=== PATIENT | female | born 1975 | race Caucasian/White ===

== ENCOUNTER 2022-02-04 05:39 | Emergency (ER) | payer SELFPAY ==
[~2022-02-04] VITALS: Ht 172.7 cm; Wt 72.6 kg
--- NOTE | 2022-02-04 05:45 | NUR ---
ULICES FROM HOME C/O ETOH FELL IN BATHROOM, CUT TO TOP OF HEAD. PT IS ALERT. RR EVEN AND NON LABORED. WOUND IS OPEN TO AIR, ACTIVELY BLEEDING. UNK TDAP. CONNECTED TO MONITOR. SAFETY PRECAUTIONS IN PLACE. AWAITING MD DOLAN
--- NOTE | 2022-02-04 06:26 | NUR ---
MEDICAL DOSIMETRIST AT BEDSIDE FOR WOUND CLEANING
--- NOTE | 2022-02-04 06:40 | NUR ---
PT SIGNED WEIVER
--- NOTE | 2022-02-04 06:49 | NUR ---
PT TAKEN TO CT SCAN VIA ELLIOT
[2022-02-04] MEDS ORDERED: BACI/NEOM/POLY B OINT PKT 1 UDPKT PACKET ONE (06:53)
[2022-02-04] MEDS ORDERED: LIDOCAINE 1% INJ 50 ML MDV IJ ONE ×2 (06:53→07:00)
[2022-02-04] MEDS ORDERED: TDAP [DIPH/PERTUSSIS/TET] 0.5 ML VIAL IM ONE ×2 (06:53→07:00)
[2022-02-04] MEDS ORDERED: ACETAMINOPHEN 325 MG TABLET PO ONE (07:00)
[2022-02-04] MEDS ORDERED: BACI/NEOM/POLY B OINT PKT 1 UDPKT PACKET TP ONE (07:00)
[2022-02-04] MEDS ORDERED: ONDANSETRON 4 MG TAB.RAPDIS ONE (07:09)
[2022-02-04] MEDS ORDERED: ACETAMINOPHEN 325 MG TABLET ONE (07:09)
[2022-02-04] MEDS ORDERED: ONDANSETRON 4 MG TAB.RAPDIS SL ONE (07:30)
--- NOTE | 2022-02-04 07:30 | NUR ---
PT TAKEN TO CT
[2022-02-04] MEDS ORDERED: IBUP-1955 PO (07:35)
[2022-02-04] MEDS ORDERED: ONDA4TAB5 PO (07:35)
--- NOTE | 2022-02-04 07:47 | NUR ---
ARRIVED BACK FROM CT
[2022-02-04 08:56] VITALS: BP 108/67
== END 2022-02-04 08:57 | disposition home or self-care (01) ==
LOC: ER 05:47
DX: S01.01XA Laceration without foreign body of scalp, initial encounter (principal); F10.129 Alcohol abuse with intoxication, unspecified; F17.200 Nicotine dependence, unspecified, uncomplicated; Z79.899 Other long term (current) drug therapy; Y90.9 Presence of alcohol in blood, level not specified; W18.30XA Fall on same level, unspecified, initial encounter; Y93.89 Activity, other specified; Y92.89 Other specified places as the place of occurrence of the external cause; Y99.8 Other external cause status
CPT/HCPCS: 99284; 70450; 12001; 90471; 90715; J3490; Q0162